=== PATIENT | female | born 1950 | race Caucasian/White ===

== ENCOUNTER 2018-05-27 06:26 | Day surgery (SDC) | payer MEDICARE, BC ==
[2018-05-27] MEDS ORDERED: Midazolam 1 MG/ML 2 ML SDV IV ONE ×6 (06:27→07:38)
[2018-05-27] MEDS ORDERED: fentaNYL 100 MCG/2 ML SDV IV ONE ×3 (06:27→07:32)
[2018-05-27] MEDS ORDERED: ceFAZolin 1 GM in Premix Bag 1 BAG IV ONE (06:30)
[2018-05-27] MEDS ORDERED: Dextrose 5%-0.45% NaCl 1,000 ML IV SCH (06:45)
[2018-05-27] MEDS ORDERED: Midazolam 1 MG/ML 2 ML SDV ONE (07:04)
[2018-05-27] MEDS ORDERED: fentaNYL 100 MCG/2 ML SDV ONE (07:04)
--- NOTE | 2018-05-27 08:09 | OR ---
DATE: 05/27/2018 PREOPERATIVE DIAGNOSES: Positive Cologuard test. POSTOPERATIVE DIAGNOSIS: Positive Cologuard test. PROCEDURE: Total colonoscopy. ANESTHESIA: Conscious sedation with IV Versed and fentanyl. SPECIMEN: None. OPERATIVE FINDINGS: Normal colonoscopy. RECOMMENDATION: Followup colonoscopy in 10 years for polyp surveillance or sooner for symptoms. INDICATION FOR PROCEDURE: This 68-year-old female has had a positive Cologuard test. She is referred by Mone Quinn. PROCEDURE IN DETAIL: After adequate preparation, a colonoscope was inserted into the rectum. This was easily passed all the way to the cecum. Confirmation of the cecum was made by visualization of the ileocecal valve and palpation in the right lower quadrant. Bowel prep was good. On withdrawal of the scope, no abnormalities were noted. Anal and rectal examinations were also normal. The air was suctioned from the colon, and the scope removed. [facility] /[id number]
[2018-05-28] MEDS ORDERED: ceFAZolin 1 GM in Premix Bag 1 BAG IV ONE (06:00)
== END 2018-05-27 10:12 | disposition home or self-care (01) ==
LOC: DL.ENDO 06:26
PROVIDERS: ATTEND Surgery
DX: R19.5 Other fecal abnormalities (principal)
CPT/HCPCS: 45378; J0690; J2250; J3010; J7042

== ENCOUNTER 2023-01-08 07:33 | Day surgery (SDC) | payer MEDICARE, BC ==
[~2023-01-08 07:33] MED LIST: Acetaminophen 325 MG Tab PO PRN; Acetaminophen/Codeine 300-30 MG Tab PO PRN; Ondansetron 4 MG/2 ML SDV IVPUSH PRN
[2023-01-08] MEDS ORDERED: Proparacaine 0.5% Ophth Soln 15 ML Bottle EYELF ONE ×2 (07:45→09:18)
[2023-01-08] MEDS ORDERED: Phenylephrine 10% Ophth Soln 5 ML Bot EYELF PRN (07:45)
[2023-01-08] MEDS ORDERED: Timolol Maleate 0.5% Ophth Soln 5 ML Bottle EYELF ONE (07:45)
[2023-01-08] MEDS ORDERED: Moxifloxacin 0.5% Ophth Soln 3 ML Bottle EYELF ONE (07:45)
[2023-01-08] MEDS ORDERED: Povidone-Iodine 5% Sterile Ophth Soln 30 ML Bottle EYELF ONE ×2 (07:45→09:20)
[2023-01-08] MEDS ORDERED: Tropicamide 1% Ophth Soln 15 ML Bottle EYELF ONE (07:45)
[2023-01-08] MEDS ORDERED: Cataract Ophth Solution EYELF ONE (07:45)
[2023-01-08] MEDS ORDERED: Lidocaine 1% 30 ML SDV ONE (09:27)
[2023-01-08] MEDS ORDERED: Balanced Salt Solution Ophth Irrig 500 ML Bottle IOCULAR ONE (09:27)
[2023-01-08] MEDS ORDERED: Vancomycin 500 MG SDV EYELF ONE (09:27)
[2023-01-08] MEDS ORDERED: Chondroitin Sulfate/Hyaluronate Sodium Ophth Inj 0.75 ML Syringe EYELF ONE (09:29)
[2023-01-08] MEDS ORDERED: Apraclonidine 0.5% Ophth Soln 5 ML Bot EYELF ONE (09:31)
[2023-01-08] MEDS ORDERED: Diclofenac Sodium 0.1% Ophth Soln 5 ML Bottle EYELF ONE (09:31)
[2023-01-08] MEDS ORDERED: Dexamethasone/Neomycin/Polymyxin B Ophth Oint 3.5 GM Tube EYELF ONE (09:32)
== END 2023-01-08 10:20 | disposition home or self-care (01) ==
LOC: DL.SDS 07:33
PROVIDERS: ATTEND Ophthalmology
DX: H25.812 Combined forms of age-related cataract, left eye (principal); I10 Essential (primary) hypertension; E03.9 Hypothyroidism, unspecified; E78.5 Hyperlipidemia, unspecified; Z90.710 Acquired absence of both cervix and uterus; Z79.890 Hormone replacement therapy; Z79.82 Long term (current) use of aspirin; Z79.899 Other long term (current) drug therapy
CPT/HCPCS: A9270-GY; J3370; J3490; V2632

== ENCOUNTER → 2023-01-22 | Day surgery (SDC) | payer MEDICARE, BC ==
[~2023-01-22] MED LIST changes: +Apraclonidine 0.5% Ophth Soln 5 ML Bot EYERT ONE; +Balanced Salt Solution Ophth Irrig 500 ML Bottle IOCULAR ONE; +Cataract Ophth Solution EYERT ONE; +Chondroitin Sulfate/Hyaluronate Sodium Ophth Inj 0.75 ML Syringe EYERT ONE; +Diclofenac Sodium 0.1% Ophth Soln 5 ML Bottle EYERT ONE; +Lidocaine 1% 30 ML SDV ONE; +Moxifloxacin 0.5% Ophth Soln 3 ML Bottle EYERT ONE; +Phenylephrine 10% Ophth Soln 5 ML Bot EYERT PRN; +Povidone-Iodine 5% Sterile Ophth Soln 30 ML Bottle EYERT ONE; +Proparacaine 0.5% Ophth Soln 15 ML Bottle EYERT ONE; +Sodium Chloride 0.9% 10 ML Syringe FLUSH PRN; +Timolol Maleate 0.5% Ophth Soln 5 ML Bottle EYERT ONE; +Tobramycin 0.3% Ophth Oint 3.5 GM Tube EYERT ONE; +Tropicamide 1% Ophth Soln 15 ML Bottle EYERT ONE; +Vancomycin 500 MG SDV EYERT ONE
== END | disposition home or self-care (01) ==
LOC: DL.SDS 08:51
PROVIDERS: ATTEND Ophthalmology
DX: H25.811 Combined forms of age-related cataract, right eye (principal); I10 Essential (primary) hypertension; E78.2 Mixed hyperlipidemia; E03.9 Hypothyroidism, unspecified; M85.80 Other specified disorders of bone density and structure, unspecified site; Z79.82 Long term (current) use of aspirin; Z79.899 Other long term (current) drug therapy; Z79.890 Hormone replacement therapy
CPT/HCPCS: A9270-GY; J3370; J3490; V2632